=== PATIENT | female | born 1940 | race Caucasian/White ===

== ENCOUNTER 2017-07-19 09:49 | Emergency (ER) | payer OTHER ==
[~2017-07-19] VITALS: Ht 165.1 cm; Wt 32.6 kg
[~2017-07-19 09:49] MED LIST: ACETAMINOPHEN-1 EAC1 PO; ADVAIR HFA 230M12 GM INH; AMBIEN 5 MG TABL5 M1 PO; ANASPAZ0.125 MG SL; ASPIR 8181 MG PO; ASPIRIN325 PO; AUGMENTIN 875-1 EACH PO; AUGMENTIN 875875 MG PO; AUGMENTIN PO; BLOOD THINNER; CARAFATE 1 GM TA1 G1 PO; CARTIA XT120 M1; CENTRUM SILVER1 EAC4 PO; CLEOCIN HCL150 MG PO; CLOTRIMAZOLE10 MG MM; COLACE 100 MG100 MG PO; COLACE100 MG PO; DIFLUCAN200 MG PO; DILTIAZEM 24HR120 M2 PO; DULCOLAX5 MG PO; DUONEB 2.5-0.5 M3 ML INH; FENTANYL PA25 MCG/HR TOP; FENTANYL PA25 MCG/HR TRANSDERM; FLAGYL500 MG PO; FLONASE 0.05%50 MCG NASAL; GERD PO; GLAUCOMA MED; GLUCOPHAGE1000 MG; HYDROCODONE-AP1 EAC6 PO; IBUPROFEN 200200 M1 PO; IBUPROFEN 600600 M1 PO; IBUPROFEN 800800 M1 PO; KLOR-CON 1010 MEQ PO; LASIX 40 MG TAB40 MG GT; LEVAQUIN 500 M500 M2 PO; LEVOTHYROXIN0.075 MG PO; LEVOTHYROXIN0.088 MG PO; LEVOTHYROXIN0.125 M1 PO; LEVOTHYROXINE 0.1 MG PO; LEVSIN0.125 MG SUBLING; LIDODERM 5%1 PATC1 TOP; LISINOPRIL5 MG PO; LOPRESSOR25 PO; MACROBID 100 M100 M2 PO; MIRALAX17 GM PERTUBE; MIRALAX17 GM PO; MOBIC7.5 MG PO; MULTI VITAMIN1 EACH PO; OMEGA-3 + VITA1 EAC1 PO; ONDANSETRON ODT4 MG PO; OXYCODONE HCL 55 MG PO; OXYCODONE HCL E10 MG PO; OXYCONTIN10 M1 PO; PERCOCET PO; PREDNISONE 10 M10 MG PO; PREDNISONE 20 M20 MG PO; PREDNISONE10 MG PO; PRILOSEC 20 MG20 MG PO; PRILOSEC20 MG PO; PROAIR RESPICL90 MCG; PROAIR RESPICL90 MCG INH; PROTONIX40 M1 PO; REGLAN 5 MG TAB5 MG PO; ROBITUSSIN100 MG/53 PO; SIMVASTATIN40 MG PO; SYMBICORT160 MCG/4. INH; TAMIFLU75 MG PO; THYROID MED; TOPROL XL25 MG PO; TRANSDERM-SCO1 PATC1 TD; TRANSDERM-SCO1 PATC1 TRANSDERM; TYLENOL325 MG PO; VENTOLIN HFA 1818 GM INH; VITAMIN B-1100 M1 PO; VITAMIN B-12500 MCG PO; VITAMIN D 5050000 I1 PO; VITAMIN D3400 UNIT PO; XARELTO10 MG PO; ZANTAC300 MG PO; ZOCOR40 MG PO; ZOFRAN ODT4 MG PO
[2017-07-19] MEDS ORDERED: RANITIDINE 150150 M1 PO (10:25)
[2017-07-19] MEDS ORDERED: COLACE100 MG PO (10:25)
[2017-07-19 10:47] LABS: INFLUENZA A ANTIGEN None Detected (None Detect); INFLUENZA B ANTIGEN None Detected (None Detect)
[2017-07-19 10:51] LABS: BE 0.4 mmol/L (-2 to +3); HCO3 24.7 mmol/L (22.0-26.0); PCO2 38.8 mmHg (35.0-45.0); PO2 74.9 mmHg (75.0-100.0); pH 7.422 (7.340-7.450)
[2017-07-19 10:56] LABS: HEMATOCRIT 34.1 % (37.0-47.0); HEMOGLOBIN 11.1 gm/dL (12.0-15.0); MCH 27.3 pg (26.0-34.0); MCHC 32.6 g/dL (28.0-37.0); MCV 83.7 fL (80.0-100.0); MPV 6.5 fl. (7.2-11.1); NUCLEATED RBCS 0 /100WBC; PLATELET COUNT* 276 thou/uL (150-400); RBC 4.07 mil/uL (4.20-5.00); WBC 6.1 thou/uL (4.0-11.0)
[2017-07-19 11:14] LABS: ALBUMIN 2.7 g/dL (3.4-5.0); ALKALINE PHOSPHATASE 87 U/L (46-116); ANION GAP 7 mmol/L (7-16); CALCIUM 9.1 mg/dL (8.5-10.1); CHLORIDE 97 mmol/L (98-107); CO2 29 mmol/L (21-32); GLUCOSE 100 mg/dL (70-99); POTASSIUM 4.6 mmol/L (3.5-5.1); SGOT 14 U/L (15-37); SGPT 13 U/L (30-65); SODIUM 133 mmol/L (136-145); TOTAL BILIRUBIN 0.2 mg/dL (<0.1-1.0); TOTAL PROTEIN 5.8 g/dL (6.4-8.2); TROPONIN-I LEVEL <0.06 ng/mL (<0.06)
[2017-07-19 11:20] LABS: ABSOLUTE LYMPHOCYTES 0.5 thou/uL (0.8-5.3); ABSOLUTE MONOCYTES 0.4 thou/uL (0.0-1.2); ABSOLUTE NEUTROPHILS 5.2 thou/uL (1.6-8.1); TOXIC GRANULATION 1+
[2017-07-19 11:21] LABS: ANISOCYTOSIS 1+; CLUMPED PLTS FEW; HYPOCHROMASIA 1+; MICROCYTES Occasional; PLATELET ESTIMATE ADEQUATE
[2017-07-19 11:23] LABS: BUN 30 mg/dL (7-18)
[2017-07-19] MEDS ORDERED: ULTRAM 50MG TAB50 MG PO (13:01)
[2017-07-19 13:11] VITALS: BP 113/74
== END 2017-07-19 13:11 | disposition home or self-care (01) ==
LOC: M.ERS 09:49
PROVIDERS: Personal Emergency Response Attendant
DX: R06.00 Dyspnea, unspecified (principal); F41.9 Anxiety disorder, unspecified; I25.2 Old myocardial infarction; I10 Essential (primary) hypertension; I25.10 Atherosclerotic heart disease of native coronary artery without angina pectoris; J44.9 Chronic obstructive pulmonary disease, unspecified; K21.9 Gastro-esophageal reflux disease without esophagitis; E03.9 Hypothyroidism, unspecified; H40.9 Unspecified glaucoma; Z88.2 Allergy status to sulfonamides; Z88.5 Allergy status to narcotic agent; Z88.1 Allergy status to other antibiotic agents